=== PATIENT | male | born 1975 | race Caucasian/White ===

== ENCOUNTER 2018-01-13 13:34 | Emergency (ER) | payer OTHER ==
[~2018-01-13] VITALS: Ht 188 cm; Wt 108.9 kg
[2018-01-13] MEDS ORDERED: HYDROCODONE-AP1 EAC6 PO (14:56)
[2018-01-13] MEDS ORDERED: IBUPROFEN 800800 M1 PO (14:56)
[2018-01-13 15:08] VITALS: BP 128/83
== END 2018-01-13 15:09 | disposition home or self-care (01) ==
LOC: M.ERS 13:34
DX: S62.319A Displaced fracture of base of unspecified metacarpal bone, initial encounter for closed fracture (principal); W20.8XXA Other cause of strike by thrown, projected or falling object, initial encounter; Y93.89 Activity, other specified; Y92.89 Other specified places as the place of occurrence of the external cause; Y99.8 Other external cause status